=== PATIENT | male | born 1955 | race Caucasian/White ===

== ENCOUNTER 2019-02-17 13:02 | Inpatient (IN) | payer MEDICARE, OTHER, SELFPAY ==
[2019-02-17 13:35] VITALS: BP 142/83; PULSE 104; RESP 20; TEMP 36.7; O2SAT 99; BMI 35.4
--- NOTE | 2019-02-17 13:59 | HP.PCM_ITS ---
Problem List (1) Opiate withdrawal Status: Acute (2) Opiate dependence Status: Acute (3) Hypertension Status: Chronic (4) Hyperlipidemia Status: Acute (5) Osteoarthritis Status: Acute (6) Cervical vertebral fusion Status: Acute (7) Chronic low back pain Status: Chronic (8) Ventral hernia Status: Acute History of Present Illness Date of Admission: 02/17/19 Chief Complaint: Presented to the [facility] office requesting inpatient admission for acute opiate withdrawal. The patient is a 63 year old M with a past medical history of chronic back pain, hypertension, hyperlipidemia, obesity, remote smoking history, cervical fusion C5 through C7 and opiate dependence who presented to the [facility] office at [facility] on 02/17/2019 requesting inpatient admission for medical stabilization for acute opiate withdrawal. He has been taking prescribed narcotics for approximately 40 years. He states he got his first back pain when he was leaning over a pool table at the age of 14. The doctor prescribing narcotics to him recently was a Dr. Dumont who has since gone out of practice after trouble with the [facility] for opiate prescriptions. He was p rescribing 660 mg of oxycodone daily for this patient. The patient has weaned himself down to 120 mg daily but when he goes lower he experiences severe withdrawal symptoms. He has never used IV drugs or purchased drugs off the street. He is having anxiety and restless legs. No diarrhea and no nausea or vomiting. He is very twitchy. His last dose of Oxycodone 30 mg was at 0400 today. CBC is unremarkable. CMP is remarkable for a glucose of 117 but otherwise was within normal limits. The tox screen is positive for opiates only. Hepatitis panel is pending. He is being admitted to the hospital and the [facility] protocol for acute opiate withdrawal will be initiated. He has recently been seen at the [facility] for severe back pain and is waiting to hear from them about a new approach to chronic back pain with nerve ablation. Past Medical History Past Medical History (Chronic Problems): Chronic Problems Hypertension (Chronic) Chronic low back pain (Chronic) Allergies nkda Allergy (Unknown, Uncoded 02/17/19 13:54) nkda Home Medications: Ambulatory Orders Medication Instructions Recorded Cyclobenzaprine [Flexeril] 10 mg PO TID 02/17/19 Diclofenac Potassium 75 mg PO Q12H 02/17/19 Losartan Potassium 1 tab PO DAILY 02/17/19 Simvastatin 1 tab PO DAILY 02/17/19 Venlafaxine HCl [Venlafaxine HCl 1 cap PO DAILY 02/17/19 ER] Surgical History: total knee arthroplasty - Bilateral, - - Fusion of C5 through C7 Psychiatric History: Depression Lives: Spouse/ Significant Other Smoking Status: Former smoker - Quit smoking in 1998 Tobacco Use: Non-smoker Alcohol: Occasional Drugs: - - Prescribed oxycodone - *Family History Maternal History Items: No pertinent history Paternal History Items: No pertinent history Review of Systems Constitutional: Reports: Chills. Denies: Fever, Weight Change HEENT: Denies: Head Aches, Sinus Congestion, Sinus Drainage, Sore Throat Cardiovascular: Denies: Chest Pain, Palpitations Respiratory: Denies: Cough, Shortness of breath at rest, Sputum production Gastrointestinal: Denies: Abdominal Pain, Nausea, Vomiting Genitourinary: Reports: Hesitancy, Nocturia, - - Slow stream and nocturia. Denies: Dysuria Musculoskeletal: Reports: Back Pain, Joint Pain, Joint stiffness, Joint Tenderness Skin: Denies: Jaundice, Rash, Wounds Neurological: Denies: Focal weakness, Numbness, Tingling, Seizures Psychiatric: Denies: Anxiety, Depression, Homicidal Ideations, Suicidal Ideations Endocrine: Denies: Hx of Thyroiditis Hematologic/ Lymphatic: Denies: Easy Bruising, Easy Bleeding, Hx of blood clot VTE Information - Inpt Only VTE Present on Admission: No VTE Mechan Device Prophylaxis: None - Patient is ambulatory VTE Pharm Prophylaxis ordered?: Yes Patient Problems: Active and Suspected Problems Opiate withdrawal (Acute) Opiate dependence (Acute) Hyperlipidemia (Acute) Osteoarthritis (Acute) Cervical vertebral fusion (Acute) Ventral hernia (Acute) - Physical Exam General: Alert, Oriented x3, Cooperative, - - He is having jerking and restless legs. He is tachycardic and his blood pressure is elevated. He is tremulous. HEENT: Atraumatic, PERRLA, EOMI, Normocephalic Oral: Dry Mucosa Neck: Supple, No Nodes, Trachea Midline Lungs: Clear to auscultation Cardiovascular: Regular Rhythm, Normal S1, Normal S2, No murmurs, No Gallop, Tachycardic Abdomen: Bowel Sounds Present, Soft, Non Tender, Non-Distended, Hernia - He has a ventral hernia, - Extremities: No clubbing, No cyanosis, No edema, No Calf Tenderness Skin: No rashes, No breakdown Musculoskeletal: No Muscle Wasting, Arthritic Changes Neurological: Cranial nerves II-XII grossly intact, Neuro grossly intact Psych/Mental Status: Normal Affect, Appropriate Weight: 246 lb 14.684 oz Body Mass Index (BMI) 35.4 Assessment/Plan All Active Problems Opiate withdrawal (Acute) Opiate dependence (Acute) Hyperlipidemia (Acute) Osteoarthritis (Acute) Cervical vertebral fusion (Acute) Ventral hernia (Acute) Impressions 1. Acute opiate withdrawal 2. Long-standing opiate dependence times 40 years 3. Former smoker-quit 20 years ago 4. Hypertension 5. Hyperlipidemia 6. Obesity 7. History of cervical fusion C5 through C7 8. Chronic low back pain 9. Suspected BPH He was admitted to the medical surgical floor and the [facility] protocol for opiate withdrawal was initiated. Blood pressure is mildly increased and the pulse rate is up so he was started on a clonidine TTS 2 patch and as needed clonidine was discontinued. Start Flomax 0.4 mg daily Continue diclofenac 75 mg twice daily Continue Effexor XR 150 mg daily Continue Flexeril 10 3 times daily, losartan and simvastatin. Patient is serious about getting off all narcotics. I suspect he is going to need to see pain management because he has severe low back pain that has been long-standing. He is awaiting a call from [facility] about a new procedure for nerve ablation he lives in [place] and I encouraged him to find a pain management doctor who may be able to help him with epidural injections. He may benefit from a TENS unit and physical therapy. I suspect he is going to have a hard withdrawal. Code Visit Inpatient E&M: 69877 Init Hosp L2
[2019-02-17 14:00] VITALS: BP 142/83; PULSE 104; RESP 20; TEMP 36.7
[2019-02-17 14:35] VITALS: RESP 22
[2019-02-17 14:36] LABS: Absolute Lymphocyte Count 2.41 X10^3/ul (0.83-4.51); Basophil# 0.09 X10^3/uL; Basophil% 1.1 % (0-1); Eosinophil# 0.31 X10^3/uL; Eosinophils% 3.7 % (0-5); Hematocrit 44.2 % (40-54); Hemoglobin 14.3 g/dl (13.0-16.5); Lymphocyte # 2.41 X10^3/ul (4.0); Lymphocyte % 28.6 % (19-41); Mean Corp Hgb Conc 32.4 g/gl (32-36); Mean Corpuscular Hgb 30.2 pg (27.0-32.0); Mean Corpuscular Volume 93.4 fL (80-94); Mean Platelet Vol. 10.5 fl (6.2-12.0); Monocyte# 0.63 X10^3/uL; Monocyte% 7.5 % (0-10); Neutrophil # 4.95 X10^3/uL (2.7-7.7); Neutrophil % 58.7 % (47-70); Platelet Count 194 K/mm3 (150-450); RBC Distribution Width CV 12.6 % (11.6-14.6); RBC Distribution Width SD 42.7 fl (35.1-43.9); Red Blood Count 4.73 M/mm3 (4.6-6.2); White Blood Count 8.4 K/mm3 (4.4-11.0)
[2019-02-17 14:37] LABS: POSITIVE COUNT NO; POSITIVE DIFFERENTIAL NO; POSITIVE MORPHOLOGY NO
[2019-02-17] MEDS: chlordiazePOXIDE 25 MG Capsule PO ×3 (14:38→21:26)
[2019-02-17] MEDS: Ibuprofen 600 MG Tablet PO (14:38)
[2019-02-17] MEDS: Buprenorphine HCl 2 MG TAB.SUBL SL ×2 (14:39→21:26)
[2019-02-17 14:44] LABS: International Normalized Ratio 0.9; Prothrombin Time (Protime)PT. 12.4 SECONDS (11.7-14.9)
[2019-02-17 14:52] LABS: ALB/GLOB Ratio 1.4 RATIO (0.9-2.4); AST(SGOT) 16 U/L (15-37); Alanine Aminotransfer ALT/SGPT 29 U/L (16-61); Albumin, Serum 4.2 g/dL (3.2-5.0); Alkaline Phosphatase 86 U/L (45-117); Anion Gap 5 (5-15); BUN 12 mg/dL (7-18); BUN/Creat Ratio 14.4 RATIO (10-20); Calcium,Total 8.8 mg/dL (8.5-10.1); Chloride 106 mmol/L (98-107); Creatinine, Serum 0.84 mg/dL (0.70-1.30); EST Glomerular Filtration Rate 98 mL/min (>60); Est Glom Filt Rate - Afr Amer 119 mL/min (>60); Estimated Creatinine Clearance 90.53 ml/min; Glucose 117 mg/dL (74-106); Potassium 4.2 mmol/L (3.5-5.1); Protein, Total 7.2 g/dL (6.4-8.2); Sodium Level 138 mmol/L (136-145)
--- NOTE | 2019-02-17 15:00 | NURSING ---
Pt reports that he is currently taking oxyir 30mg Q6hr for a total of 120mg/day. He states that he has been weaning himself off of oxyir since June and hit a wall at 120mg/day. He reports that for the last 8mos he has been on the couch and unable to ambulate much due to pain. He reports that he has become to painful and weak to take care of their dream house that [place] built [place] the [place]. Pt on verge of tears as he states that he envisioned being able to spend at least another 10 years there. He states that [facility] is suppose to call to schedule him for a procedure that recently had just been experimental. The procedure involves burning bone and nerves so that they heal and reduce pain. Pt has disc of imaging completed at a different hospital if physician would like to view. Pt adamant that staff know he is not an addict but that these medications were ordered for him for over 30 years- then suddenly they were taken away. Emotional support provided.
[2019-02-17 15:29] LABS: Amphetamine Urine VISTA NEGATIVE (<1000 ng/mL); Barbiturate Urine VISTA NEGATIVE (< 200 ng/mL); Benzodiazepine Urine VISTA NEGATIVE (< 200 ng/mL); Cocaine Urine VISTA NEGATIVE (< 300 ng/mL); Ecstacy Urine VISTA NEGATIVE (< 500 ng/mL); Methadone Urine VISTA NEGATIVE (< 300 ng/mL); PCP Urine VISTA NEGATIVE (< 25 ng/mL); THC Urine VISTA NEGATIVE (< 50 ng/mL); Vista UDS pH Range 6
[2019-02-17 16:50] VITALS: PULSE 102
[2019-02-17] MEDS: Pramipexole Di-HCl 0.25 MG Tablet PO (16:51)
[2019-02-17 18:00] VITALS: BP 139/87; PULSE 97; RESP 14; TEMP 36.6
[2019-02-17] MEDS: Atorvastatin Calcium 20 MG Tablet PO (21:26)
[2019-02-17] MEDS: Diclofenac 75 MG Tablet PO (21:27)
[2019-02-17] MEDS: traZODone 50 MG Tablet PO (21:28)
[2019-02-17] MEDS: hydrOXYzine PAM 25 MG Capsule 50 MG PO (21:34)
[2019-02-17 22:00] VITALS: BP 143/78; PULSE 92; RESP 16; TEMP 36.8
[2019-02-18 02:00] VITALS: BP 118/75; PULSE 79; RESP 16; TEMP 36.6; O2SAT 95
[2019-02-18] MEDS: chlordiazePOXIDE 25 MG Capsule PO ×3 (03:05→09:18)
[2019-02-18 05:58] VITALS: RESP 16
[2019-02-18] MEDS: Buprenorphine HCl 2 MG TAB.SUBL SL ×3 (06:41→22:05)
--- NOTE | 2019-02-18 08:31 | PCM.PROGNOTE ---
Patient Problems: Active and Suspected Problems Opiate withdrawal (Acute) Subjective: Chief complaint: Follow-up after admission for acute opioid withdrawal. Patient seen and examined. No acute events overnight. He mentioned that he was able to sleep last night, he could not sleep for several days before admission. Level of anxiety and restlessness is improving. His vital signs are stable. - Physical Exam General: Alert, Oriented x3, Cooperative, No apparent distress HEENT: Atraumatic, PERRLA, EOMI, Normocephalic Oral: Moist Mucosa, No Gingival or Mucosal Lesions/ Ulcerations Neck: Supple, No JVD, Negative Carotid Bruits, Trachea Midline, Thyroid Normal Size and Texture Lungs: Clear to auscultation, Normal air movement, No rhonchi, No wheeze, No rales Cardiovascular: Regular rate, Regular Rhythm, Normal S1, Normal S2, PMI Normal Abdomen: Bowel Sounds Present, Soft, Non Tender, Non-Distended, No Hepato-splenomegaly Extremities: No clubbing, No cyanosis, No edema Skin: No rashes, No breakdown Lymphatic: No Cervical, Supraclavicular, or Inguinal Adenopathy Neurological: Cranial nerves II-XII grossly intact, Motor Exam 5/5 strength throughout Psych/Mental Status: Normal Affect, Appropriate, Alert and oriented to time, place, person, mood and affect Vital Signs Temp Pulse Resp BP Pulse Ox 97.9 F 79 16 118/75 95 02/18/19 02:00 02/18/19 02:00 02/18/19 05:58 02/18/19 02:00 02/18/19 02:00 Oxygen Delivery Method Room Air Weight: 246 lb 14.684 oz Body Mass Index (BMI) 35.4 Intake and Output for Last 24 Hours 02/16/19 02/17/19 02/18/19 23:59 23:59 23:59 Intake Total 400 / 400 1100 / 1100 Output Total 300 / 300 Balance 100 / 100 1100 / 1100 Laboratory Tests Past 24 Hrs 02/17/19 02/17/19 02/17/19 14:25 14:25 14:25 WBC 8.4 RBC 4.73 Hgb 14.3 Hct 44.2 MCV 93.4 MCH 30.2 MCHC 32.4 RDW 12.6 RDW Differential 42.7 Plt Count 194 MPV 10.5 Immature Gran % (Auto) 0.400 Neut % (Auto) 58.7 Lymph % (Auto) 28.6 Cobb % (Auto) 7.5 Eos % (Auto) 3.7 Baso % (Auto) 1.1 H Absolute Neuts (auto) 5.0 Absolute Lymphs (auto) 2.41 Total Counted Not Reportable PT 12.4 INR 0.9 Sodium 138 Potassium 4.2 Chloride 106 Carbon Dioxide 27.0 Anion Gap 5 BUN 12 Creatinine 0.84 Estim Creat Clear Calc 90.53 Est GFR (MDRD) Af Amer 119 Est GFR (MDRD) Non-Af 98 BUN/Creatinine Ratio 14.4 Glucose 117 H Calcium 8.8 Total Bilirubin 0.40 AST 16 ALT 29 Alkaline Phosphatase 86 Total Protein 7.2 Albumin 4.2 Globulin 3.0 Albumin/Globulin Ratio 1.4 Urine Opiates Screen Urine Methadone Screen Ur Barbiturates Screen Ur Phencyclidine Scrn Ur Amphetamines Screen U Methamphetamin-MDMA U Benzodiazepines Scrn Urine Cocaine Screen U Cannabinoids Screen Ur Drug Screen Comment Ethyl Alcohol Hepatitis A IgM Ab Hepatitis A Ab Total Hep Bs Antigen Hep B Core Total Ab Hep B Core IgM Ab 02/17/19 02/17/19 02/18/19 14:25 15:00 05:18 WBC RBC Hgb Hct MCV MCH MCHC RDW RDW Differential Plt Count MPV Immature Gran % (Auto) Neut % (Auto) Lymph % (Auto) Cobb % (Auto) Eos % (Auto) Baso % (Auto) Absolute Neuts (auto) Absolute Lymphs (auto) Total Counted PT INR Sodium Potassium Chloride Carbon Dioxide Anion Gap BUN Creatinine Estim Creat Clear Calc Est GFR (MDRD) Af Amer Est GFR (MDRD) Non-Af BUN/Creatinine Ratio Glucose Calcium Total Bilirubin AST ALT Alkaline Phosphatase Total Protein Albumin Globulin Albumin/Globulin Ratio Urine Opiates Screen POSITIVE H Urine Methadone Screen NEGATIVE Ur Barbiturates Screen NEGATIVE Ur Phencyclidine Scrn NEGATIVE Ur Amphetamines Screen NEGATIVE U Methamphetamin-MDMA NEGATIVE U Benzodiazepines Scrn NEGATIVE Urine Cocaine Screen NEGATIVE U Cannabinoids Screen NEGATIVE Ur Drug Screen Comment Ethyl Alcohol 17.0 Hepatitis A IgM Ab Pending Hepatitis A Ab Total Pending Hep Bs Antigen Pending Hep B Core Total Ab Pending Hep B Core IgM Ab Pending Medical Necessity - Tobacco Use Smoking Status: Former smoker - Quit smoking in 1998 Assessment/Plan All Active Problems Opiate withdrawal (Acute) This is a 63 years old male patient admitted for acute opioid withdrawal for medical stabilization. #1 acute opiate withdrawal: He is on [facility] protocol with tapering course of Subutex, as needed Librium, as needed Bentyl, methocarbamol, Zofran, Mirapex and Catapres. Patient stated his symptoms are improving. His vital signs are stable. Routine blood work was unremarkable. LFT was normal. Urine drug screen is positive for opioids. Hepatitis serologies pending. Plan to continue same treatment. #2 hypertension: Blood pressure stable, continue losartan. #3 hyperlipidemia: Continue statins. #4 osteoarthritis/chronic low back pain/cervical vertebral fusion: #5 DVT prophylaxis: Subcu Lovenox. This note was generated with [employer] dictation software. It may contain incorrect words, spelling, and punctuation that were not noted in checking the note before signing. Code Visit Inpatient E&M: 47239 Subs Hosp L2
[2019-02-18] MEDS: Enoxaparin 40 MG/0.4 ML Syringe SC (09:17)
[2019-02-18] MEDS: cloNIDine HCl 0.2 MG Patch TRANSDERM. (09:17)
[2019-02-18] MEDS: Venlafaxine XR 150 MG Capsule PO (09:18)
[2019-02-18] MEDS: Diclofenac 75 MG Tablet PO ×2 (09:18→22:05)
[2019-02-18] MEDS: Losartan Potassium 50 MG Tablet PO (09:18)
[2019-02-18 09:27] VITALS: BP 136/76; PULSE 81; RESP 18; TEMP 36.6
[2019-02-18 14:30] VITALS: BP 116/77; PULSE 80; RESP 18; TEMP 36.4
[2019-02-18] MEDS: Acetaminophen 500 MG Tablet PO (17:44)
[2019-02-18] MEDS: Tamsulosin HCl 0.4 MG Capsule PO (17:44)
[2019-02-18 22:00] VITALS: BP 131/74; PULSE 83; RESP 16; TEMP 36.6
[2019-02-18] MEDS: traZODone 50 MG Tablet PO (22:05)
[2019-02-18] MEDS: Atorvastatin Calcium 20 MG Tablet PO (22:05)
[2019-02-19 02:00] VITALS: RESP 16
[2019-02-19 06:00] VITALS: RESP 18
[2019-02-19 06:06] LABS: HEPATITIS B SURFACE AG Negative (Negative); Hepatitis A AB, Total Negative (Negative); Hepatitis A IgM Antibody Negative (Negative); Hepatitis B Core AB IgM Negative (Negative); Hepatitis B Core Ab Total Negative (Negative); Hepatitis C Ab <0.1 s/co ratio (0.0-0.9)
[2019-02-19] MEDS: Buprenorphine HCl 2 MG TAB.SUBL SL ×2 (06:14→17:41)
[2019-02-19] MEDS: chlordiazePOXIDE 25 MG Capsule PO ×3 (06:19→17:41)
[2019-02-19] MEDS: Losartan Potassium 50 MG Tablet PO (08:31)
[2019-02-19] MEDS: Venlafaxine XR 150 MG Capsule PO (08:32)
[2019-02-19] MEDS: Enoxaparin 40 MG/0.4 ML Syringe SC (08:32)
[2019-02-19] MEDS: Diclofenac 75 MG Tablet PO ×2 (08:32→21:34)
[2019-02-19] MEDS: Acetaminophen 500 MG Tablet PO ×3 (08:34→18:47)
[2019-02-19] MEDS: Methocarbamol 750 MG Tablet PO ×3 (08:35→21:34)
[2019-02-19 08:40] VITALS: BP 143/86; PULSE 103; RESP 18; TEMP 36.8; O2SAT 94
--- NOTE | 2019-02-19 08:56 | PCM.PROGNOTE ---
Patient Problems: Active and Suspected Problems Opiate withdrawal (Acute) Subjective: Chief complaint: Follow-up after admission for acute opioid withdrawal. Patient seen and examined. No acute events overnight. He mentioned that earlier this morning, he had an episode of withdrawal symptoms but not improved. At this time, he is feeling better. His vital signs are stable. - Physical Exam General: Alert, Oriented x3, Cooperative, No apparent distress HEENT: Atraumatic, PERRLA, EOMI, Normocephalic Oral: Moist Mucosa, No Gingival or Mucosal Lesions/ Ulcerations Neck: Supple, No JVD, Negative Carotid Bruits, Trachea Midline, Thyroid Normal Size and Texture Lungs: Clear to auscultation, Normal air movement, No rhonchi, No wheeze, No rales Cardiovascular: Regular rate, Regular Rhythm, Normal S1, Normal S2, PMI Normal Abdomen: Bowel Sounds Present, Soft, Non Tender, Non-Distended, No Hepato-splenomegaly Extremities: No clubbing, No cyanosis, No edema Skin: No rashes, No breakdown Lymphatic: No Cervical, Supraclavicular, or Inguinal Adenopathy Neurological: Cranial nerves II-XII grossly intact, Neuro grossly intact Psych/Mental Status: Normal Affect, Appropriate, Alert and oriented to time, place, person, mood and affect Vital Signs Temp Pulse Resp BP Pulse Ox 98.2 F 103 H 18 143/86 H 94 02/19/19 08:40 02/19/19 08:40 02/19/19 08:40 02/19/19 08:40 02/19/19 08:40 Oxygen Delivery Method Room Air Weight: 246 lb 14.684 oz Body Mass Index (BMI) 35.4 Intake and Output for Last 24 Hours 02/17/19 02/18/19 02/19/19 23:59 23:59 23:59 Intake Total 400 / 400 1750 / 1750 725 / 725 Output Total 300 / 300 Balance 100 / 100 1750 / 1750 725 / 725 Medical Necessity - Tobacco Use Smoking Status: Former smoker - Quit smoking in 1998 Tobacco Use: Non-smoker Assessment/Plan All Active Problems Opiate withdrawal (Acute) This is a 63 years old male patient admitted for acute opioid withdrawal for medical stabilization. #1 acute opiate withdrawal: Remained on [facility] protocol with tapering course of Subutex, as needed Librium, as needed Bentyl, methocarbamol, Zofran, Mirapex and Catapres. Patient is feeling better, symptoms are improving. His vital signs are stable. Routine blood work was unremarkable. LFT was normal. Urine drug screen is positive for opioids. Hepatitis serologies pending. Plan to continue same treatment, DC home tomorrow. #2 hypertension: Blood pressure stable, continue losartan. #3 hyperlipidemia: Continue statins. #4 osteoarthritis/chronic low back pain/cervical vertebral fusion: #5 DVT prophylaxis: Subcu Lovenox. This note was generated with [employer] dictation software. It may contain incorrect words, spelling, and punctuation that were not noted in checking the note before signing. Code Visit Inpatient E&M: 24722 Subs Hosp L2
[2019-02-19 14:12] VITALS: BP 123/72; PULSE 116; RESP 16; TEMP 36.6; O2SAT 97
[2019-02-19] MEDS: hydrOXYzine PAM 25 MG Capsule 50 MG PO ×2 (14:39→21:34)
--- NOTE | 2019-02-19 14:50 | [facility] ---
Patient is on waiting list for the radio frequency ablation / Intracept with Dr. Rene Raza at the [facility]. Patient / clinic staff reported to [facility] that they anticipate the procedure to be available in approximately 30 days.
[2019-02-19 16:38] LABS: Hep B Surface Antibodies Non Reactive (.)
[2019-02-19] MEDS: Tamsulosin HCl 0.4 MG Capsule PO (17:41)
[2019-02-19 20:01] VITALS: BP 134/69; PULSE 110; RESP 16; TEMP 36.8
[2019-02-19] MEDS: Pramipexole Di-HCl 0.25 MG Tablet PO (20:15)
[2019-02-19] MEDS: Atorvastatin Calcium 20 MG Tablet PO (21:34)
[2019-02-19] MEDS: traZODone 50 MG Tablet PO (21:34)
[2019-02-20 05:56] VITALS: BP 130/71; PULSE 89; RESP 16; TEMP 36.7
[2019-02-20] MEDS: Buprenorphine HCl 2 MG TAB.SUBL SL (06:01)
--- NOTE | 2019-02-20 08:24 | DCINST_ITS ---
- Discharge Diagnoses Current Active Problems: Current Active and Chronic Problems Opiate withdrawal (Acute) Opiate dependence (Chronic) Hypertension (Chronic) Hyperlipidemia (Chronic) Osteoarthritis (Chronic) Cervical vertebral fusion (Chronic) Chronic low back pain (Chronic) Ventral hernia (Chronic) You will use the following diet at home:: Cardiac Your food should be the consistency of: Regular Discharge Activity: Return to Normal Activity Weight Bearing Status: Full weight bearing Call your doctor if you observe: Fever of 101 or Higher, Shortness of breath, Dizziness, Fainting spells, Chest pain, Increased palpitations (irregular heartbeat), Uncontrolled pain Additional Instructions: Please follow-up with the [facility] program. Allergies/Adverse Reactions: Allergies No Known Allergies Allergy (Verified 02/17/19 14:43) Medications to take at Discharge Cyclobenzaprine [Flexeril] 10 mg PO TID 02/17/19 Diclofenac Potassium 75 mg PO Q12H 02/17/19 Losartan Potassium 1 tab PO DAILY 02/17/19 Simvastatin 1 tab PO DAILY 02/17/19 Venlafaxine HCl [Venlafaxine HCl ER] 1 cap PO DAILY 02/17/19 Primary Care Physician: Triny Franklin,Out of [Primary Care Provider] - Please follow up with your Primary Care Physician in: 2 weeks. Test Results: Test results from this visit will be discussed in further detail at your follow- up appointment, if applicable.
[2019-02-20 10:10] VITALS: BP 131/79; PULSE 93; RESP 18; TEMP 36.7
[2019-02-20] MEDS: Diclofenac 75 MG Tablet PO (10:19)
[2019-02-20] MEDS: Losartan Potassium 50 MG Tablet PO (10:19)
[2019-02-20] MEDS: Venlafaxine XR 150 MG Capsule PO (10:19)
[2019-02-20 13:42] VITALS: BP 104/71; PULSE 93; RESP 16; TEMP 36.8; O2SAT 93
--- NOTE | 2019-02-20 13:48 | NURSING ---
Offered pt hius 1400 scheduled flexeril but pt refused.
--- NOTE | 2019-02-20 15:58 | DS.PCM_ITS ---
Discharge Date and Diagnosis Date of Admission: 02/17/19 Date of Discharge: 02/20/19 - Primary Discharge Diagnosis Acute opioid withdrawal admitted for medical stabilization. - Secondary Discharge Diagnosis Chronic Problems Opiate dependence (Chronic) Hypertension (Chronic) Hyperlipidemia (Chronic) Osteoarthritis (Chronic) Cervical vertebral fusion (Chronic) Chronic low back pain (Chronic) Ventral hernia (Chronic) Hospital Course and Treatment Operations: None Procedures: None Summary of Care Provided: Patient seen and examined on the day of discharge and appeared to be stable to be discharged home. Symptoms improved, less anxious and restless, denies any more abdominal cramps. His vital signs are stable. The patient is a 63 year old M presented to the [facility] [employer] office requesting admission for acute opioid withdrawal for medical stabilization. Patient was admitted, started on [facility] protocol with tapering course of Subutex, as ne eded Librium, Bentyl, methocarbamol, Zofran, Mirapex and Catapres. His routine blood work was unremarkable as well as LFTs, pro time and INR. Urine drug screen was positive for opioids. Infectious hepatitis screen came back negative for hepatitis A, B and C. With treatment, patient symptoms improved slowly and he did very well. Patient discharged home in a stable medical condition, discharged on his chronic home medications without any changes, recommended from with [facility] program as instructed, follow-up with PCP in 2 weeks. - Physical Exam General: Alert, Oriented x3, Cooperative, No apparent distress HEENT: Atraumatic, PERRLA, EOMI, Normocephalic Oral: Moist Mucosa, No Gingival or Mucosal Lesions/ Ulcerations Neck: Supple, No JVD, Negative Carotid Bruits, Trachea Midline, Thyroid Normal Size and Texture Lungs: Clear to auscultation, Normal air movement, No rhonchi, No wheeze, No rales Cardiovascular: Regular rate, Regular Rhythm, Normal S1, Normal S2, PMI Normal Abdomen: Bowel Sounds Present, Soft, Non Tender, Non-Distended, No Hepato- splenomegaly Extremities: No clubbing, No cyanosis, No edema Skin: No rashes, No breakdown Lymphatic: No Cervical, Supraclavicular, or Inguinal Adenopathy Neurological: Cranial nerves II-XII grossly intact, Motor Exam 5/5 strength thro ughout Psych/Mental Status: Normal Affect, Appropriate Vital Signs Temp Pulse Resp BP Pulse Ox 98.2 F 93 16 104/71 93 04/19/19 13:42 02/20/19 13:42 02/20/19 13:42 02/20/19 13:42 02/20/19 13:42 Oxygen Delivery Method Room Air Weight: 246 lb 14.684 oz Body Mass Index (BMI) 35.4 Intake and Output for Last 24 Hours 02/18/19 02/19/19 02/20/19 23:59 23:59 23:59 Intake Total 1750 / 1750 1925 / 1925 1045 / 1045 Balance 1750 / 1750 1924 / 192 1045 / 1045 Laboratory Tests Past 24 Hrs 02/18/19 05:18 Hepatitis A IgM Ab Negative Hepatitis A Ab Total Negative Hep Bs Antigen Negative Hep B Core Total Ab Negative Hep B Core IgM Ab Negative Hepatitis C Ab Confirm <0.1 Hepatitis C Comment Comment Discharge Activity: Return to Normal Activity Weight Bearing Status: Full weight bearing Call your doctor if you observe: Fever of 101 or Higher, Shortness of breath, Dizziness, Fainting spells, Chest pain, Increased palpitations (irregular heartbeat), Uncontrolled pain Home Medications: Medications to take at Discharge Cyclobenzaprine [Flexeril] 10 mg PO TID 02/17/19 Diclofenac Potassium 75 mg PO Q12H 02/17/19 Losartan Potassium 1 tab PO DAILY 02/17/19 Simvastatin 1 tab PO DAILY 02/17/19 Venlafaxine HCl [Venlafaxine HCl ER] 1 cap PO DAILY 02/17/19 Primary Care Physician: [facility] Doctor,Out of [Primary Care Provider] - Please follow up with your Primary Care Physician in: 2 weeks. Disposition: Home Minutes spent on discharge:: 25 Patient Condition:: Stable Medical Necessity - Tobacco Use Smoking Status: Former smoker - Quit smoking in 1998 Tobacco Use: Non-smoker Meaningful Use Info Meaningful Use Diagnoses (Choose all that apply): None applicable Code Visit Inpatient E&M: 06354 Disch Hosp
== END 2019-02-20 13:49 | disposition home or self-care (01) | DRG 897 ==
PROVIDERS: Admitting Provider Internal Medicine; Referring Provider Internal Medicine; Visit Provider Hospitalist
DX: F11.23 Opioid dependence with withdrawal (principal); G89.29 Other chronic pain; Z98.1 Arthrodesis status; E78.5 Hyperlipidemia, unspecified; I10 Essential (primary) hypertension; Z87.891 Personal history of nicotine dependence; E66.9 Obesity, unspecified; Z68.35 Body mass index [BMI] 35.0-35.9, adult; M54.5 Low back pain; M19.90 Unspecified osteoarthritis, unspecified site; K43.9 Ventral hernia without obstruction or gangrene
CPT/HCPCS: 36415; 80053; 80307; 80320; 85025; 85610; 86704; 86705; 86706; 86708; 86709; 86803; 87340; G0480